=== PATIENT | female | born 1965 | race Caucasian/White ===

== ENCOUNTER → 2019-12-20 | Outpatient (CLI) | payer OTHER ==
[~2019-12-20] MED LIST: ASPIRIN EC81 M1 PO; AUGMENTIN 875875 M1 PO; CALCIUM 600 +1 EAC5 PO; FISH OIL 1,0001 EAC5 PO; FLOMAX PO; LISINOPRIL20 MG PO; MULTIVITAMINS1 EAC7 PO; TOPROL XL50 MG PO; VERAPAMIL ER240 M1 PO; VICODIN ES 7.51 EACH PO; ZOCOR 20 MG TAB20 M1 PO
[2019-12-20 08:59] LABS: ABSOLUTE EOSINOPHILS 0.1 thou/uL (0.0-0.7); ABSOLUTE LYMPHOCYTES 1.5 thou/uL (0.8-5.3); ABSOLUTE MONOCYTES 0.4 thou/uL (0.0-1.2); ABSOLUTE NEUTROPHILS 3.4 thou/uL (1.6-8.1); BASOPHILS 0.9 %; EOSINOPHILS 1.6 %; HEMATOCRIT 40.2 % (37.0-47.0); HEMOGLOBIN 13.6 gm/dL (12.0-15.0); LYMPHOCYTES 26.9 %; MCH 28.6 pg (26.0-34.0); MCHC 33.9 g/dL (28.0-37.0); MCV 84.3 fL (80.0-100.0); MONOCYTES 7.4 %; MPV 7.6 fl. (7.2-11.1); NUCLEATED RBCS 0 /100WBC; PLATELET COUNT* 290 thou/uL (150-400); POLYS 63.2 %; RBC 4.77 mil/uL (4.20-5.00); RDW-CV 13.6 % (10.5-14.5); WBC 5.4 thou/uL (4.0-11.0)
[2019-12-20 09:14] LABS: CALCIUM 9.1 mg/dL (8.5-10.1); CREATININE 0.8 mg/dL (0.6-1.3); POTASSIUM 4.3 mmol/L (3.5-5.1)
[2019-12-20 09:18] LABS: ALBUMIN 3.7 g/dL (3.4-5.0); TOTAL BILIRUBIN 0.8 mg/dL (<0.1-1.0); TOTAL PROTEIN 7.1 g/dL (6.4-8.2)
== END ==
LOC: M.MRI 08:42
PROVIDERS: Internal Medicine Gastroenterology
DX: K86.89 Other specified diseases of pancreas (principal)